=== PATIENT | female | born 1970 | race Caucasian/White ===

== ENCOUNTER 2016-07-04 13:15 | Outpatient (RCR) | payer BC, OTHER | END 2016-07-06 | disposition home or self-care (01) | LOC: WSPT | DX: M41.86 Other forms of scoliosis, lumbar region (principal) | CPT/HCPCS: G8978-GP; G8979-GP ==

== ENCOUNTER 2016-08-28 11:15 | Outpatient (RCR) | payer BC, OTHER | END 2016-08-30 10:35 | disposition home or self-care (01) | LOC: WSPT 11:15 | DX: M41.9 Scoliosis, unspecified (principal) ==